=== PATIENT | male | born 1990 | race Hispanic/Latino ===

== ENCOUNTER 2019-01-21 05:20 | Emergency (ER) | payer BC ==
[2019-01-21] MEDS ORDERED: CYCLOBENZAPRINE HCL 10 MG TABLET ONE (06:01)
[2019-01-21] MEDS ORDERED: KETOROLAC TROMETHAMINE 60 MG/2 ML VIAL ONE (06:01)
[2019-01-21] MEDS ORDERED: TRAMADOL HCL 50 MG TABLET ONE (06:02)
[2019-01-21] MEDS ORDERED: METHYLPREDNISOLONE SOD SUCC 125MG/2ML VIAL ONE (07:27)
== END 2019-01-21 07:41 | disposition home or self-care (01) ==
LOC: EDH 05:20
DX: M62.830 Muscle spasm of back (principal); M54.5 Low back pain
CPT/HCPCS: 72100; 96372 ×2; 99284; J1885; J2930

== ENCOUNTER 2019-11-30 11:47 | Emergency (ER) | payer BC | END 2019-11-30 13:14 | disposition home or self-care (01) | LOC: EDH 11:47 | DX: M54.5 Low back pain (principal) | CPT/HCPCS: 99281 ==